=== PATIENT | male | born 1995 | race Caucasian/White ===

== ENCOUNTER 2018-04-12 20:51 | Emergency (ER) | payer BC ==
[2018-04-12] MEDS: KETAMINE (50 MG/ML) 10 ML VIAL IV (21:30)
[2018-04-12] MEDS: KETOROLAC 30 MG INJ IM (21:55)
[2018-04-12] MEDS: morphine 4 MG/ML VIAL IV (21:59)
[2018-04-12] MEDS: PROPOFOL 200 MG INJ IV (22:11)
== END 2018-04-12 23:58 | disposition home or self-care (01) ==
LOC: E/R 20:51
DX: S52.611A Displaced fracture of right ulna styloid process, initial encounter for closed fracture (principal); S52.502A Unspecified fracture of the lower end of left radius, initial encounter for closed fracture; W18.39XA Other fall on same level, initial encounter; Y92.9 Unspecified place or not applicable; Z87.891 Personal history of nicotine dependence
CPT/HCPCS: 25605; 73100; 73110-RT; 94770; 96374; 96375; 99285-25

== ENCOUNTER 2018-04-13 15:52 | Emergency (ER) | payer BC | END 2018-04-13 17:24 | disposition home or self-care (01) | LOC: E/R 15:52 | DX: S52.501D Unspecified fracture of the lower end of right radius, subsequent encounter for closed fracture with routine healing (principal); S52.614D Nondisplaced fracture of right ulna styloid process, subsequent encounter for closed fracture with routine healing; W18.39XD Other fall on same level, subsequent encounter; Z87.891 Personal history of nicotine dependence | CPT/HCPCS: 99282 ==

== ENCOUNTER 2018-04-15 16:12 | Emergency (ER) | payer BC ==
[2018-04-15] MEDS: LIDOCAINE/MYLANTA 40 ML BTL PO (18:03)
[2018-04-15] MEDS: RANITIDINE 150 MG TAB PO (18:07)
== END 2018-04-15 18:34 | disposition home or self-care (01) ==
LOC: FTE 16:12
DX: R10.13 Epigastric pain (principal); Z87.891 Personal history of nicotine dependence
CPT/HCPCS: 99283

== ENCOUNTER 2018-08-31 20:52 | Emergency (ER) | payer BC ==
[2018-08-31] MEDS: LORAZEPAM 1 MG TAB PO (21:36)
[2018-08-31 21:55] LABS: ADD MAN DIFF? NO
[2018-08-31 21:57] LABS: BASOPHILS % 0.2 % (0.0-2.0); EOSINOPHILS % 0.2 % (0.0-7.0); HEMATOCRIT 38.6 % (42.0-52.0); LYMPHOCYTES # 1.1 10^3/ul (0.8-2.9); LYMPHOCYTES % 11.3 % (15.0-51.0); MEAN CORPUSCULAR HGB CONC 33.7 g/dl (32.0-37.0); MEAN CORPUSCULAR VOLUME 89.1 fl (82.0-101.0); MEAN PLATELET VOLUME 11.5 fl (7.4-10.4); MONOCYTE # 0.5 10^3/ul (0.3-0.9); NEUTROPHIL # 8.2 10^3/ul (1.6-7.5); NEUTROPHILS % 82.7 % (39.0-77.0); PLATELET COUNT 163 10^3/UL (140-415); RED BLOOD COUNT 4.33 10^6/ul (4.70-6.10); RED CELL DISTRIBUTION WIDTH 11.5 % (11.5-14.5)
[2018-08-31 21:57] LABS: WHITE BLOOD COUNT 9.9 10^3/ul (4.8-10.8)
[2018-08-31 22:05] LABS: ACETAMINOPHEN < 10.0 ug/ml (10.0-30.0); ALANINE AMINOTRANSFERASE 27 IU/L (13-69); ALBUMIN 4.5 g/dl (3.3-4.9); ALBUMIN/GLOBULIN RATIO 1.73; ALKALINE PHOSPHATASE 66 IU/L (42-121); ANION GAP 11 (5-13); ASPARTATE AMINO TRANSFERASE 53 IU/L (15-46); BILIRUBIN,INDIRECT 0.7 mg/dl (0-1.1); BILIRUBIN,TOTAL 0.7 mg/dl (0.2-1.3); BLOOD UREA NITROGEN 20 mg/dl (7-20); CARBON DIOXIDE 26 mmol/L (21-31); CHLORIDE 99 mmol/L (97-110); CREATININE 1.53 mg/dl (0.61-1.24); ETHANOL < 10.0 mg/dl; Estimated GFR 56 mL/min (>60); GLUCOSE 104 mg/dl (70-220); POTASSIUM 4.2 mmol/L (3.5-5.1); SALICYLATE < 1.0 mg/dl (5.0-30.0); SODIUM 136 mmol/L (135-144); TOTAL PROTEIN 7.1 g/dl (6.1-8.1)
[2018-08-31 22:22] LABS: URINE BLOOD (Dip) POC Negative (NEGATIVE); URINE GLUCOSE (Dip) POC Negative (NEGATIVE); URINE KETONES (Dip) POC Negative (NEGATIVE); URINE LEUKOCYTE EST (Dip) POC Negative (NEGATIVE); URINE NITRITE (Dip) POC Negative (NEGATIVE); URINE TOTAL PROTEIN POC Trace (NEGATIVE)
[2018-08-31] MEDS: SOD CHLORIDE 0.9% 1,000 ML IV (22:36)
[2018-08-31 23:05] LABS: AMPHETAMINE/METHAMPHETAMINE Positive (NEGATIVE); BARBITURATES Negative (NEGATIVE); BENZODIAZEPINES Negative (NEGATIVE); CANNABINOIDS Positive (NEGATIVE); COCAINE Negative (NEGATIVE); OPIATES Negative (NEGATIVE)
[2018-09-01] MEDS: QUETIAPINE 100 MG TAB PO (01:25)
[2018-09-01] MEDS: LORAZEPAM 2 MG INJ IV (06:22)
[2018-09-01] MEDS: OLANZAPINE 10 MG VIAL IM (06:22)
== END 2018-09-01 13:06 ==
LOC: E/R 09-01 13:06
DX: F29 Unspecified psychosis not due to a substance or known physiological condition (principal); R40.2142 Coma scale, eyes open, spontaneous, at arrival to emergency department; R40.2252 Coma scale, best verbal response, oriented, at arrival to emergency department; R40.2362 Coma scale, best motor response, obeys commands, at arrival to emergency department; Z87.891 Personal history of nicotine dependence
CPT/HCPCS: 36415; 80053; 80307; 81003; 85025; 96361; 96374; 99285-25